=== PATIENT | male | born 2000 | race Caucasian/White ===

== ENCOUNTER 2022-09-18 17:04 | Emergency (ER) | payer SELFPAY ==
[~2022-09-18] VITALS: Ht 170.2 cm; Wt 85.3 kg
[2022-09-18 17:22] VITALS: BP 120/65
--- NOTE | 2022-09-18 19:39 | NUR ---
TO BED 11 FROM TRIAGE
[2022-09-18] MEDS: ACETAMINOPHEN 325 MG TAB PO ONE (19:41)
[2022-09-18 19:49] VITALS: BP 120/65
--- NOTE | 2022-09-18 19:49 | NUR ---
Patient does not wish to proceed with medical care recommended by ION GALLARDO. Patient given information related to possible complications, up to and including , which could occur as a result of leaving hospital at this time. Patient verbalizes understanding of risks involved leaving against medical advice. Patient has signed AMA form.
== END 2022-09-18 19:49 | disposition left against medical advice (07) ==
LOC: MED 17:04
DX: M25.511 Pain in right shoulder (principal); V49.9XXA Car occupant (driver) (passenger) injured in unspecified traffic accident, initial encounter; Y93.89 Activity, other specified; Y92.410 Unspecified street and highway as the place of occurrence of the external cause; Y99.8 Other external cause status
CPT/HCPCS: 99282